=== PATIENT | male | born 2000 | race African-American/Black ===

== ENCOUNTER 2019-03-09 16:55 | Emergency (ER) | payer OTHER ==
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
[2019-03-09 17:04] VITALS: BP 121/64; PULSE 65; TEMP 99; BMI 25.0
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
== END 2019-03-09 18:24 | disposition home or self-care (01) ==
LOC: JER 16:55
DX: Z04.1 Encounter for examination and observation following transport accident (principal); V57.5XXA Driver of pick-up truck or van injured in collision with fixed or stationary object in traffic accident, initial encounter; W22.11XA Striking against or struck by driver side automobile airbag, initial encounter; Y92.415 Exit ramp or entrance ramp of street or highway as the place of occurrence of the external cause; Y93.89 Activity, other specified; Y99.8 Other external cause status
CPT/HCPCS: 99281-25

== ENCOUNTER 2020-09-15 21:19 | Observation (INO) | payer OTHER ==
[2020-09-15 22:02] LABS: BASO % 0.6 % (0-2.0); EOS % 1.9 % (0-4.5); HEMATOCRIT 43.4 % (35.4-49); HEMOGLOBIN 14.3 GM/dL (11.7-16.9); LYMPH % 28.6 % (8-40); MCH 27.5 pg (25.7-33.7); MCHC 32.9 g/dl (32.0-35.9); MEAN CELL VOLUME 83.3 fl (80-96); MEAN PLT VOLUME 7.6 fl (7.5-11.1); MONO % 8.3 % (3.8-10.2); NEUT % 60.6 % (42.8-82.8); PLATELET COUNT 355 K/MM3 (134-434); RBC 5.21 M/mm3 (4.00-5.60); RDW 13.8 % (11.9-15.9)
[2020-09-15 22:10] LABS: CHLORIDE 104 mmol/L (98-107); POTASSIUM 4.2 mmol/L (3.5-5.1); SODIUM 138 mmol/L (136-145)
[2020-09-15 22:12] LABS: ALBUMIN 3.9 g/dl (3.4-5.0)
[2020-09-15 22:13] LABS: ANION GAP 5 MMOL/L (8-16); BLOOD UREA NITROGEN 20.9 mg/dL (7-18); CO2 28 mmol/L (21-32); GLUCOSE,RANDOM 109 mg/dL (74-106)
[2020-09-15 22:15] LABS: INR 1.14 (0.83-1.09)
[2020-09-15 22:16] LABS: CREATININE 1.1 mg/dL (0.55-1.3); SGOT/AST 22 U/L (15-37); SGPT/ALT 26 U/L (13-61)
[2020-09-15 22:17] LABS: BILIRUBIN,TOTAL 0.3 mg/dL (0.2-1)
[2020-09-15 22:18] LABS: ACTIVATED PTT 32.4 SECONDS (25.2-36.5); TOT PROT 7.8 g/dl (6.4-8.2)
[2020-09-15 22:19] LABS: ALK PHOS 72 U/L (45-117); CALCIUM 9.1 mg/dL (8.5-10.1)
[2020-09-16] MEDS ORDERED: METOPROLOL TARTRATE 25 MG TABLET (FP) PO ONE (00:09)
[2020-09-16] MEDS ORDERED: METOPROLOL TARTRATE 25 MG TABLET (FP) ONE (00:16)
[2020-09-16] MEDS ORDERED: METOPROLOL TARTRATE 50 MG TABLET (FP) PO PRN (01:58)
[2020-09-16 05:03] VITALS: BMI 26.2
[2020-09-16] MEDS ORDERED: metoPROLOL SUCCINATE 25 MG TAB.SR.24H (FP) PO SCH (10:00)
[2020-09-16] MEDS ORDERED: ENOXAPARIN NA (PORCINE) 40 MG/0.4 ML DISP.SYRIN SQ SCH (10:00)
[2020-09-16 11:52] LABS: HEMATOCRIT 43.2 % (35.4-49); HEMOGLOBIN 14.2 GM/dL (11.7-16.9); MCH 27.5 pg (25.7-33.7); MCHC 32.9 g/dl (32.0-35.9); MEAN CELL VOLUME 83.4 fl (80-96); MEAN PLT VOLUME 7.4 fl (7.5-11.1); PLATELET COUNT 337 K/MM3 (134-434); RBC 5.18 M/mm3 (4.00-5.60); RDW 13.6 % (11.9-15.9); WHITE BLOOD COUNT 5.5 K/mm3 (4.0-10.0)
[2020-09-16 12:16] LABS: CHLORIDE 104 mmol/L (98-107); POTASSIUM 4.8 mmol/L (3.5-5.1); SODIUM 138 mmol/L (136-145)
[2020-09-16 12:18] LABS: ANION GAP 2 MMOL/L (8-16); BLOOD UREA NITROGEN 17.4 mg/dL (7-18); CALCIUM 9.6 mg/dL (8.5-10.1); CO2 33 mmol/L (21-32); GLUCOSE,RANDOM 97 mg/dL (74-106); MAGNESIUM 2.3 mg/dL (1.8-2.4)
[2020-09-16 12:22] LABS: PHOSPHOROUS 3.6 mg/dL (2.5-4.9)
[2020-09-16 15:16] VITALS: BP 108/60; PULSE 62; TEMP 97.6
[2020-09-16 15:16] LABS: URINE APPEARANCE CLOUDY; URINE BILIRUBIN NEGATIVE (NEGATIVE); URINE COLOR YELLOW; URINE GLUCOSE (UA) NEGATIVE (NEGATIVE); URINE KETONE NEGATIVE (NEGATIVE); URINE LEUK ESTERASE NEGATIVE (NEGATIVE); URINE NITRITE NEGATIVE (NEGATIVE); URINE PROTEIN NEGATIVE (NEGATIVE); URINE UROBILINOGEN 0.2 mg/dL (0.2-1.0)
[2020-09-16 15:27] LABS: METHADONE, UR NEGATIVE ng/ml (CUTOFF=300); URINE BARBITURATES NEGATIVE ng/ml (CUTOFF=200); URINE BENZODIAZEPINES NEGATIVE ng/ml (CUTOFF=200)
[2020-09-16 15:28] LABS: COCAINE, UR NEGATIVE ng/ml (CUTOFF=300); OPIATES, URI NEGATIVE ng/ml (CUTOFF=300); PHENCYCLIDINE,URINE NEGATIVE ng/ml (CUTOFF=25); URINE AMPHETAMINES NEGATIVE ng/ml (CUTOFF=500)
== END 2020-09-16 15:56 | disposition home or self-care (01) ==
LOC: JER 21:19 → JERBED 09-16 00:58 → J4W 09-16 05:07
PROVIDERS: ADMIT Internal Medicine
DX: I47.1 Supraventricular tachycardia (principal); R00.2 Palpitations
CPT/HCPCS: 36415; 71045-TC-FY; 80048; 80053; 80307; 81003; 82550; 82553; 83735; 83835; 84100; 84443; 84484; 85025; 85027; 85379; 85610; 85730; 93005; 93010; 93306-TC; 99285-25; C9803; G0378; U0003